=== PATIENT | male | born 1990 | race African-American/Black ===

== ENCOUNTER 2017-12-24 11:05 | Inpatient (IN) | payer MEDICARE ==
[2017-12-24] MEDS: CA CHLORIDE 10% 10 ML SYRINGE IV (11:50)
[2017-12-24] MEDS: NA BICARBONATE 8.4% 50 ML SYG IV (11:50)
[2017-12-24] MEDS: NA POLYST SULFON 15 GM/60 ML BTL PO (11:50)
[2017-12-24] MEDS: ALBUTEROL 0.5% (NEB) 2.5 MG/0.5 ML AMP INH (11:51)
[2017-12-24 12:01] LABS: WHITE BLOOD COUNT 10.7 10^3/ul (4.8-10.8)
[2017-12-24 12:01] LABS: ABNORMAL IP MESSAGE 1; MEAN CORPUSCULAR HEMOGLOBIN 31.4 pg (29.0-33.0); MEAN CORPUSCULAR HGB CONC 31.6 g/dl (32.0-37.0); MEAN CORPUSCULAR VOLUME 99.5 fl (82.0-101.0); MEAN PLATELET VOLUME 10.4 fl (7.4-10.4); PLATELET COUNT 253 10^3/UL (140-415); POSITIVE DIFF @See below; RED BLOOD COUNT 1.91 10^6/ul (4.70-6.10); RED CELL DISTRIBUTION WIDTH 14.3 % (11.5-14.5)
[2017-12-24 12:12] LABS: ADD MAN DIFF? YES; PATH REVIEW? YES
[2017-12-24 12:27] LABS: ANION GAP 18 (5-13); BLOOD UREA NITROGEN 113 mg/dl (7-20); CALCIUM 8.8 mg/dl (8.4-10.2); CARBON DIOXIDE 20 mmol/L (21-31); CHLORIDE 105 mmol/L (97-110); GLUCOSE 90 mg/dl (70-220); SODIUM 143 mmol/L (135-144)
[2017-12-24 12:37] LABS: CREATININE 19.94 mg/dl (0.61-1.24); Estimated GFR 3 mL/min (>60); POTASSIUM 7.6 mmol/L (3.5-5.1)
[2017-12-24 12:49] LABS: TROPONIN-I 0.048 ng/ml (0.000-0.120)
[2017-12-24] MEDS: hydrALAzine 20 MG INJ IV (12:56)
[2017-12-24] MEDS ORDERED: ONDANSETRON 4 MG INJ IV ×2 (13:00→14:30)
[2017-12-24] MEDS ORDERED: ACETAMINOPHEN 325 MG TAB PO ×2 (13:00→14:30)
[2017-12-24 13:04] LABS: ANISOCYTOSIS 2+ (0-0); BAND NEUTROPHILS #M 0.2 10^3/ul (0.0-0.6); BAND NEUTROPHILS % (M) 2 % (0-4); LYMPHOCYTES #M 1.2 10^3/ul (0.8-2.9); LYMPHOCYTES % (M) 12 % (15-51); MICROCYTOSIS 2+ (0-0); MONOCYTE #M 0.2 10^3/ul (0.3-0.9); MONOCYTES % (M) 2 % (0-11); PLATELET ESTIMATE NORMAL; POIKILOCYTOSIS 1+ (0-0); POLYCHROMASIA 3+ (0-0); SEGMENTED NEUTROPHILS (M) % 84 % (39-77); SMUDGE%M 2 % (0-0)
[2017-12-24] MEDS ORDERED: ALBUMIN HUMAN 25% 100 ML IV (13:30)
[2017-12-24] MEDS ORDERED: SODIUM CHLORIDE 0.9% 1L BAG IV (13:30)
[2017-12-24] MEDS: SOD CHLORIDE 0.9% 250 ML IV (14:00)
[2017-12-24] MEDS: SOD CHLORIDE 0.9% 250 ML IV* (14:10)
[2017-12-24] MEDS ORDERED: NACL 0.9% 3 ML SYG IV (14:30)
[2017-12-24] MEDS ORDERED: ALBUTEROL 0.083% (NEB) 2.5 MG/3 ML AMP HHN (15:30)
[2017-12-24 16:21] LABS: IMMEDIATE SPIN CROSSMATCH 1 3
[2017-12-24 16:43] LABS: HEPATITIS B SURFACE ANTIGEN NEGATIVE (NEGATIVE)
[2017-12-24 18:11] LABS: CREATINE KINASE 169 IU/L (23-200)
[2017-12-24 18:21] LABS: CK INDEX 1.3; CK-MB 2.21 ng/ml (0.0-2.4); TROPONIN-I 0.084 ng/ml (0.000-0.120)
[2017-12-24] MEDS: ALBUTEROL 0.083% (NEB) 2.5 MG/3 ML AMP HHN (20:37)
[2017-12-24] MEDS: LOSARTAN 50 MG TAB PO (20:45)
[2017-12-24] MEDS: NIFEdipine (XL) 30 MG TAB PO (20:45)
[2017-12-24] MEDS ORDERED: HEPARIN 5,000 UNIT/1 ML VIAL SC (22:00)
[2017-12-24 23:42] LABS: CREATINE KINASE 124 IU/L (23-200)
[2017-12-24 23:54] LABS: CK INDEX 1.1; CK-MB 1.37 ng/ml (0.0-2.4); TROPONIN-I 0.112 ng/ml (0.000-0.120)
[2017-12-25 05:29] LABS: ADD MAN DIFF? NO
[2017-12-25 05:42] LABS: BASOPHILS % 0.5 % (0.0-2.0); EOSINOPHILS # 0.2 10^3/ul (0.0-0.5); EOSINOPHILS % 2.4 % (0.0-7.0); HEMOGLOBIN 7.7 g/dl (14.0-18.0); MEAN CORPUSCULAR HEMOGLOBIN 30.6 pg (29.0-33.0); MEAN CORPUSCULAR HGB CONC 32.1 g/dl (32.0-37.0); MEAN CORPUSCULAR VOLUME 95.2 fl (82.0-101.0); MEAN PLATELET VOLUME 10.4 fl (7.4-10.4); MONOCYTE # 0.6 10^3/ul (0.3-0.9); MONOCYTES % 7.9 % (0.0-11.0); NEUTROPHIL # 5.9 10^3/ul (1.6-7.5); NEUTROPHILS % 75.6 % (39.0-77.0); PLATELET COUNT 243 10^3/UL (140-415); RED BLOOD COUNT 2.52 10^6/ul (4.70-6.10); RED CELL DISTRIBUTION WIDTH 15.7 % (11.5-14.5)
[2017-12-25 05:42] LABS: WHITE BLOOD COUNT 7.9 10^3/ul (4.8-10.8)
[2017-12-25 05:49] LABS: PHOSPHORUS 6.1 mg/dl (2.5-4.9)
[2017-12-25 05:49] LABS: MAGNESIUM 2.3 mg/dl (1.7-2.5)
[2017-12-25 06:00] LABS: ALANINE AMINOTRANSFERASE 23 IU/L (13-69); ALBUMIN 3.5 g/dl (3.3-4.9); ALKALINE PHOSPHATASE 87 IU/L (42-121); ANION GAP 10 (5-13); ASPARTATE AMINO TRANSFERASE 17 IU/L (15-46); BILIRUBIN,INDIRECT 0.6 mg/dl (0-1.1); BILIRUBIN,TOTAL 0.6 mg/dl (0.2-1.3); BLOOD UREA NITROGEN 64 mg/dl (7-20); CARBON DIOXIDE 28 mmol/L (21-31); CHLORIDE 102 mmol/L (97-110); Estimated GFR 6 mL/min (>60); GLUCOSE 96 mg/dl (70-220); POTASSIUM 5.5 mmol/L (3.5-5.1); SODIUM 140 mmol/L (135-144)
[2017-12-25] MEDS: ALBUTEROL 0.083% (NEB) 2.5 MG/3 ML AMP HHN (08:00)
[2017-12-25] MEDS: NIFEdipine (XL) 30 MG TAB PO ×2 (09:39→20:32)
[2017-12-25] MEDS: MULTIVIT/CA CARB/B CMPLX/FA TAB PO (09:40)
[2017-12-25] MEDS: LOSARTAN 50 MG TAB PO ×2 (09:40→20:31)
[2017-12-25] MEDS: EPOETIN 10000 UNITS/1 ML INJ (ESRD) SC (17:07)
[2017-12-25] MEDS: hydrALAzine 20 MG INJ IV (18:28)
[2017-12-26 05:01] LABS: ADD MAN DIFF? NO
[2017-12-26 05:09] LABS: BASOPHILS % 0.6 % (0.0-2.0); EOSINOPHILS # 0.2 10^3/ul (0.0-0.5); EOSINOPHILS % 3.2 % (0.0-7.0); HEMATOCRIT 25.2 % (42.0-52.0); HEMOGLOBIN 8.1 g/dl (14.0-18.0); LYMPHOCYTES # 0.9 10^3/ul (0.8-2.9); LYMPHOCYTES % 13.5 % (15.0-51.0); MEAN CORPUSCULAR HEMOGLOBIN 30.5 pg (29.0-33.0); MEAN CORPUSCULAR HGB CONC 32.1 g/dl (32.0-37.0); MEAN CORPUSCULAR VOLUME 94.7 fl (82.0-101.0); MEAN PLATELET VOLUME 9.8 fl (7.4-10.4); MONOCYTE # 0.7 10^3/ul (0.3-0.9); MONOCYTES % 9.8 % (0.0-11.0); NEUTROPHILS % 72.6 % (39.0-77.0); PLATELET COUNT 216 10^3/UL (140-415); RED BLOOD COUNT 2.66 10^6/ul (4.70-6.10); RED CELL DISTRIBUTION WIDTH 15.1 % (11.5-14.5)
[2017-12-26 05:09] LABS: WHITE BLOOD COUNT 6.9 10^3/ul (4.8-10.8)
[2017-12-26 05:36] LABS: MAGNESIUM 2.1 mg/dl (1.7-2.5)
[2017-12-26 05:36] LABS: PHOSPHORUS 5.9 mg/dl (2.5-4.9)
[2017-12-26 06:24] LABS: ALANINE AMINOTRANSFERASE 23 IU/L (13-69); ALBUMIN 3.5 g/dl (3.3-4.9); ALBUMIN/GLOBULIN RATIO 1.52; ALKALINE PHOSPHATASE 86 IU/L (42-121); ANION GAP 12 (5-13); ASPARTATE AMINO TRANSFERASE 17 IU/L (15-46); BILIRUBIN,INDIRECT 0.3 mg/dl (0-1.1); BILIRUBIN,TOTAL 0.3 mg/dl (0.2-1.3); CALCIUM 8.3 mg/dl (8.4-10.2); CARBON DIOXIDE 28 mmol/L (21-31); CHLORIDE 99 mmol/L (97-110); Estimated GFR 8 mL/min (>60); GLUCOSE 90 mg/dl (70-220); POTASSIUM 4.9 mmol/L (3.5-5.1); SODIUM 139 mmol/L (135-144); TOTAL PROTEIN 5.8 g/dl (6.1-8.1)
[2017-12-26 06:39] LABS: BLOOD UREA NITROGEN 39 mg/dl (7-20); CREATININE 9.02 mg/dl (0.61-1.24)
[2017-12-26] MEDS: NIFEdipine (XL) 30 MG TAB PO (08:16)
[2017-12-26] MEDS: LOSARTAN 50 MG TAB PO (08:17)
[2017-12-26] MEDS: MULTIVIT/CA CARB/B CMPLX/FA TAB PO (08:17)
[2017-12-26] MEDS: hydrALAzine 20 MG INJ IV (11:04)
[2017-12-26 17:21] LABS: OCCULT BLOOD STOOL NEGATIVE (NEGATIVE)
== END 2017-12-26 20:32 | disposition home or self-care (01) | DRG 640 ==
LOC: 6WM 12-26 09:09 → E/R 11:05 → 6WM 13:00
PROVIDERS: Internal Medicine
PROC: 5A1D70Z Performance of Urinary Filtration, Intermittent, Less than 6 Hours Per Day (ICD-10-PCS; principal; 2017-12-24)
PROC: 30233N1 Transfusion of Nonautologous Red Blood Cells into Peripheral Vein, Percutaneous Approach (ICD-10-PCS; 2017-12-24)
DX: E87.70 Fluid overload, unspecified (principal); J96.00 Acute respiratory failure, unspecified whether with hypoxia or hypercapnia; J81.0 Acute pulmonary edema; N18.6 End stage renal disease; I12.0 Hypertensive chronic kidney disease with stage 5 chronic kidney disease or end stage renal disease; E87.5 Hyperkalemia; Z99.2 Dependence on renal dialysis; I16.0 Hypertensive urgency; Z72.0 Tobacco use; D64.9 Anemia, unspecified
CPT/HCPCS: 36415; 36430; 71045; 80048; 80053; 82270; 82550; 82553; 83735; 84100; 84484; 85025; 86850; 86900; 86901; 86920; 87340; 90935; 93005; 94664; 96374; 96375; 99291-25

== ENCOUNTER 2018-05-25 01:50 | Inpatient (IN) | payer MEDICARE ==
[2018-05-25 02:34] LABS: ADD MAN DIFF? NO
[2018-05-25 02:38] LABS: WHITE BLOOD COUNT 11.1 10^3/ul (4.8-10.8)
[2018-05-25 02:38] LABS: BASOPHILS % 0.3 % (0.0-2.0); EOSINOPHILS % 0.3 % (0.0-7.0); HEMOGLOBIN 10.8 g/dl (14.0-18.0); LYMPHOCYTES # 0.6 10^3/ul (0.8-2.9); LYMPHOCYTES % 5.7 % (15.0-51.0); MEAN CORPUSCULAR HEMOGLOBIN 28.9 pg (29.0-33.0); MEAN CORPUSCULAR HGB CONC 31.8 g/dl (32.0-37.0); MEAN CORPUSCULAR VOLUME 90.9 fl (82.0-101.0); MEAN PLATELET VOLUME 10.5 fl (7.4-10.4); MONOCYTE # 0.9 10^3/ul (0.3-0.9); MONOCYTES % 8.3 % (0.0-11.0); NEUTROPHIL # 9.5 10^3/ul (1.6-7.5); NEUTROPHILS % 84.9 % (39.0-77.0); PLATELET COUNT 236 10^3/UL (140-415); RED BLOOD COUNT 3.74 10^6/ul (4.70-6.10); RED CELL DISTRIBUTION WIDTH 14.3 % (11.5-14.5)
[2018-05-25 02:55] LABS: ALANINE AMINOTRANSFERASE 9 IU/L (13-69); ALBUMIN 4.4 g/dl (3.3-4.9); ALBUMIN/GLOBULIN RATIO 1.18; ALKALINE PHOSPHATASE 100 IU/L (42-121); ANION GAP 21 (5-13); ASPARTATE AMINO TRANSFERASE 16 IU/L (15-46); BILIRUBIN,INDIRECT 0.9 mg/dl (0-1.1); BILIRUBIN,TOTAL 0.9 mg/dl (0.2-1.3); BLOOD UREA NITROGEN 77 mg/dl (7-20); CALCIUM 9.4 mg/dl (8.4-10.2); CARBON DIOXIDE 22 mmol/L (21-31); CHLORIDE 97 mmol/L (97-110); GLUCOSE 94 mg/dl (70-220); POTASSIUM 4.3 mmol/L (3.5-5.1); SODIUM 140 mmol/L (135-144); TOTAL PROTEIN 8.1 g/dl (6.1-8.1)
[2018-05-25 02:56] LABS: LACTIC ACID 1.3 mmol/L (0.5-2.0)
[2018-05-25 02:57] LABS: INR 1.04; PROTIME 13.7 Sec (11.9-14.9); PT RATIO 1.1
[2018-05-25 02:58] LABS: PARTIAL THROMBOPLASTIN TIME 27.2 Sec (23.0-35.0)
[2018-05-25 03:14] LABS: CREATININE 14.52 mg/dl (0.61-1.24); Estimated GFR 5 mL/min (>60)
[2018-05-25 03:16] LABS: TROPONIN-I 0.228 ng/ml (0.000-0.120)
[2018-05-25] MEDS: hydrALAzine 20 MG INJ IV ×2 (03:23→05:19)
[2018-05-25] MEDS ORDERED: LABETALOL HCL 20MG INJ (06:16)
[2018-05-25] MEDS: LABETALOL HCL 20MG INJ IV (06:21)
[2018-05-25] MEDS ORDERED: LABETALOL HCL 20MG INJ IV (07:00)
[2018-05-25] MEDS ORDERED: NITROGLYCERIN (SL) 0.4 MG TAB SL (07:00)
[2018-05-25] MEDS ORDERED: ACETAMINOPHEN 325 MG TAB PO (07:00)
[2018-05-25] MEDS ORDERED: NACL 0.9% 3 ML SYG IV (07:00)
[2018-05-25 08:26] LABS: CREATINE KINASE 144 IU/L (23-200)
[2018-05-25 08:27] LABS: LACTIC ACID 0.9 mmol/L (0.5-2.0)
[2018-05-25 08:39] LABS: CK INDEX 1.4; CK-MB 1.99 ng/ml (0.0-2.4)
[2018-05-25] MEDS: MULTIVIT/CA CARB/B CMPLX/FA TAB PO (08:48)
[2018-05-25] MEDS: NIFEdipine (XL) 60 MG TAB PO ×2 (08:50→20:16)
[2018-05-25] MEDS: LOSARTAN 50 MG TAB PO ×2 (08:50→20:15)
[2018-05-25] MEDS: ASPIRIN 81 MG TAB PO (08:50)
[2018-05-25] MEDS: HEPARIN 5,000 UNIT/1 ML VIAL SC ×2 (08:51→20:26)
[2018-05-25] MEDS ORDERED: NIFEdipine (XL) 30 MG TAB PO (09:00)
[2018-05-25] MEDS ORDERED: ALBUMIN HUMAN 25% 100 ML IV (15:00)
[2018-05-25] MEDS ORDERED: SODIUM CHLORIDE 0.9% 1L BAG IV (15:00)
[2018-05-25 15:51] LABS: CREATINE KINASE 125 IU/L (23-200)
[2018-05-25 16:05] LABS: CK INDEX 1.5; CK-MB 1.84 ng/ml (0.0-2.4)
[2018-05-25 16:11] LABS: TROPONIN-I 0.354 ng/ml (0.000-0.120)
[2018-05-25 18:28] LABS: HEPATITIS B SURFACE ANTIGEN NEGATIVE (NEGATIVE)
[2018-05-25] MEDS: ATORVASTATIN 80 MG TAB PO (20:15)
[2018-05-26 06:54] LABS: ADD MAN DIFF? NO
[2018-05-26 06:55] LABS: BASOPHIL # 0.1 10^3/ul (0.0-0.1); BASOPHILS % 1.3 % (0.0-2.0); EOSINOPHILS # 0.2 10^3/ul (0.0-0.5); EOSINOPHILS % 4.7 % (0.0-7.0); HEMATOCRIT 32.2 % (42.0-52.0); HEMOGLOBIN 10.2 g/dl (14.0-18.0); LYMPHOCYTES % 21.5 % (15.0-51.0); MEAN CORPUSCULAR HEMOGLOBIN 28.5 pg (29.0-33.0); MEAN CORPUSCULAR HGB CONC 31.7 g/dl (32.0-37.0); MEAN CORPUSCULAR VOLUME 89.9 fl (82.0-101.0); MEAN PLATELET VOLUME 10.3 fl (7.4-10.4); MONOCYTE # 0.3 10^3/ul (0.3-0.9); MONOCYTES % 7.3 % (0.0-11.0); NEUTROPHIL # 2.9 10^3/ul (1.6-7.5); NEUTROPHILS % 64.8 % (39.0-77.0); PLATELET COUNT 247 10^3/UL (140-415); RED BLOOD COUNT 3.58 10^6/ul (4.70-6.10); RED CELL DISTRIBUTION WIDTH 14.5 % (11.5-14.5)
[2018-05-26 06:55] LABS: WHITE BLOOD COUNT 4.5 10^3/ul (4.8-10.8)
[2018-05-26 07:22] LABS: ALANINE AMINOTRANSFERASE 9 IU/L (13-69); ALBUMIN 3.6 g/dl (3.3-4.9); ALBUMIN/GLOBULIN RATIO 1.24; ALKALINE PHOSPHATASE 71 IU/L (42-121); ANION GAP 21 (5-13); ASPARTATE AMINO TRANSFERASE 14 IU/L (15-46); BILIRUBIN,INDIRECT 0.6 mg/dl (0-1.1); BILIRUBIN,TOTAL 0.6 mg/dl (0.2-1.3); BLOOD UREA NITROGEN 106 mg/dl (7-20); CALCIUM 8.9 mg/dl (8.4-10.2); CARBON DIOXIDE 22 mmol/L (21-31); CHLORIDE 94 mmol/L (97-110); CHOL/HDL RATIO 5.4 RATIO; CHOLESTEROL 168 mg/dl (100-200); GLUCOSE 95 mg/dl (70-220); HDL CHOLESTEROL 31 mg/dl (28-63); LDL CHOLESTEROL,CALCULATED 108 mg/dl; MAGNESIUM 2.7 mg/dl (1.7-2.5); POTASSIUM 4.7 mmol/L (3.5-5.1); SODIUM 137 mmol/L (135-144); TOTAL PROTEIN 6.5 g/dl (6.1-8.1); TRIGLYCERIDES 145 mg/dl (0-149)
[2018-05-26 07:26] LABS: HEMOGLOBIN A1C 5.1 % (0-5.9)
[2018-05-26 07:28] LABS: CREATINE KINASE 103 IU/L (23-200)
[2018-05-26 07:32] LABS: Estimated GFR 4 mL/min (>60)
[2018-05-26 07:40] LABS: CK INDEX 1.5; CK-MB 1.58 ng/ml (0.0-2.4)
[2018-05-26 07:46] LABS: TROPONIN-I 0.227 ng/ml (0.000-0.120)
[2018-05-26 07:51] LABS: THYROID STIMULATING HORMONE 0.279 MIU/L (0.465-4.680)
[2018-05-26] MEDS: MULTIVIT/CA CARB/B CMPLX/FA TAB PO (08:25)
[2018-05-26] MEDS: LOSARTAN 50 MG TAB PO ×2 (08:25→21:00)
[2018-05-26] MEDS: NIFEdipine (XL) 60 MG TAB PO ×2 (08:26→21:00)
[2018-05-26] MEDS: ASPIRIN 81 MG TAB PO (08:26)
[2018-05-26] MEDS: HEPARIN 5,000 UNIT/1 ML VIAL SC ×2 (08:29→21:00)
[2018-05-26] MEDS: ATORVASTATIN 80 MG TAB PO (20:59)
[2018-05-27 07:14] LABS: ANION GAP 16 (5-13); BLOOD UREA NITROGEN 58 mg/dl (7-20); CALCIUM 8.8 mg/dl (8.4-10.2); CARBON DIOXIDE 26 mmol/L (21-31); CHLORIDE 94 mmol/L (97-110); CREATININE 11.97 mg/dl (0.61-1.24); Estimated GFR 6 mL/min (>60); GLUCOSE 93 mg/dl (70-220); POTASSIUM 4.2 mmol/L (3.5-5.1); SODIUM 136 mmol/L (135-144)
[2018-05-27] MEDS: MULTIVIT/CA CARB/B CMPLX/FA TAB PO (08:13)
[2018-05-27] MEDS: LOSARTAN 50 MG TAB PO (08:14)
[2018-05-27] MEDS: NIFEdipine (XL) 60 MG TAB PO (08:14)
[2018-05-27] MEDS: HEPARIN 5,000 UNIT/1 ML VIAL SC (08:14)
[2018-05-27] MEDS: ASPIRIN 81 MG TAB PO (08:14)
== END 2018-05-27 13:20 | disposition home or self-care (01) | DRG 304 ==
LOC: E/R 01:50 → TEL 05:31
PROC: 5A1D70Z Performance of Urinary Filtration, Intermittent, Less than 6 Hours Per Day (ICD-10-PCS; principal; 2018-05-26)
DX: I16.1 Hypertensive emergency (principal); N18.6 End stage renal disease; J81.0 Acute pulmonary edema; I50.30 Unspecified diastolic (congestive) heart failure; I13.2 Hypertensive heart and chronic kidney disease with heart failure and with stage 5 chronic kidney disease, or end stage renal disease; D63.1 Anemia in chronic kidney disease; R00.0 Tachycardia, unspecified; R79.89 Other specified abnormal findings of blood chemistry; Z99.2 Dependence on renal dialysis
CPT/HCPCS: 71045; 80048; 80053; 80061; 82550; 82553; 83036; 83605; 83735; 84443; 84484; 85025; 85610; 85730; 87040-91; 87340; 90935; 93005; 93306; 94660

== ENCOUNTER 2018-07-28 21:12 | Inpatient (IN) | payer MEDICARE ==
[2018-07-28 23:21] LABS: ADD MAN DIFF? NO
[2018-07-28 23:23] LABS: BASOPHILS % 0.6 % (0.0-2.0); EOSINOPHILS # 0.1 10^3/ul (0.0-0.5); EOSINOPHILS % 1.8 % (0.0-7.0); HEMATOCRIT 22.7 % (42.0-52.0); HEMOGLOBIN 7.5 g/dl (14.0-18.0); LYMPHOCYTES # 0.7 10^3/ul (0.8-2.9); LYMPHOCYTES % 21.1 % (15.0-51.0); MEAN CORPUSCULAR HEMOGLOBIN 29.3 pg (29.0-33.0); MEAN CORPUSCULAR VOLUME 88.7 fl (82.0-101.0); MEAN PLATELET VOLUME 9.9 fl (7.4-10.4); MONOCYTE # 0.5 10^3/ul (0.3-0.9); MONOCYTES % 13.4 % (0.0-11.0); NEUTROPHIL # 2.1 10^3/ul (1.6-7.5); NEUTROPHILS % 62.8 % (39.0-77.0); PLATELET COUNT 131 10^3/UL (140-415); RED BLOOD COUNT 2.56 10^6/ul (4.70-6.10)
[2018-07-28 23:23] LABS: WHITE BLOOD COUNT 3.4 10^3/ul (4.8-10.8)
[2018-07-28 23:43] LABS: ALANINE AMINOTRANSFERASE 22 IU/L (13-69); ALBUMIN 4.3 g/dl (3.3-4.9); ALBUMIN/GLOBULIN RATIO 1.59; ALKALINE PHOSPHATASE 78 IU/L (42-121); ANION GAP 20 (5-13); ASPARTATE AMINO TRANSFERASE 19 IU/L (15-46); BILIRUBIN,INDIRECT 0.3 mg/dl (0-1.1); BILIRUBIN,TOTAL 0.3 mg/dl (0.2-1.3); CALCIUM 8.7 mg/dl (8.4-10.2); CARBON DIOXIDE 17 mmol/L (21-31); CHLORIDE 97 mmol/L (97-110); GLUCOSE 86 mg/dl (70-220); SODIUM 134 mmol/L (135-144)
[2018-07-29 00:04] LABS: CREATININE 23.98 mg/dl (0.61-1.24); Estimated GFR 3 mL/min (>60)
[2018-07-29 00:06] LABS: BLOOD UREA NITROGEN 126 mg/dl (7-20); POTASSIUM 6.5 mmol/L (3.5-5.1)
[2018-07-29 00:15] LABS: B-TYPE NATRIURETIC PEPTIDE 48300 PG/ML (0-125)
[2018-07-29 00:16] LABS: TROPONIN-I 0.049 ng/ml (0.000-0.120)
[2018-07-29] MEDS: ALBUTEROL 0.5% (NEB) 2.5 MG/0.5 ML AMP INH (00:53)
[2018-07-29] MEDS: CA CHLORIDE 10% 10 ML SYRINGE IV (01:22)
[2018-07-29] MEDS: SODIUM POLYSTYRENE 15 GM KIT (POWDER + SORBITOL) PO (01:22)
[2018-07-29] MEDS: NA BICARBONATE 8.4% 50 ML SYG IV (01:22)
[2018-07-29] MEDS ORDERED: ACETAMINOPHEN 325 MG TAB PO ×2 (01:30)
[2018-07-29] MEDS ORDERED: BISACODYL (EC) 5 MG TAB PO (01:30)
[2018-07-29] MEDS ORDERED: ONDANSETRON 4 MG INJ IV (01:30)
[2018-07-29] MEDS ORDERED: DOCUSATE SODIUM 100 MG CAP PO (01:30)
[2018-07-29] MEDS ORDERED: NACL 0.9% 3 ML SYG IV (01:30)
[2018-07-29] MEDS: ONDANSETRON 4 MG INJ IV (01:34)
[2018-07-29] MEDS: INSULIN REGULAR, HUMAN 100 UNIT/1 ML 3ML VIAL IVP (01:37)
[2018-07-29] MEDS: HEPARIN 5,000 UNIT/1 ML VIAL SC ×3 (01:52→17:30)
[2018-07-29 01:54] LABS: PHOSPHORUS 9.4 mg/dl (2.5-4.9)
[2018-07-29] MEDS: NIFEdipine (XL) 60 MG TAB PO ×3 (02:07→21:00)
[2018-07-29] MEDS: hydrALAzine 20 MG INJ IV ×2 (02:07→18:17)
[2018-07-29] MEDS ORDERED: hydrALAzine 20 MG INJ IV (03:00)
[2018-07-29 03:19] LABS: ANION GAP 29 (5-13); CALCIUM 9.8 mg/dl (8.4-10.2); CARBON DIOXIDE 16 mmol/L (21-31); CHLORIDE 98 mmol/L (97-110); POTASSIUM 4.8 mmol/L (3.5-5.1); SODIUM 143 mmol/L (135-144)
[2018-07-29 03:33] LABS: BLOOD UREA NITROGEN 123 mg/dl (7-20); CREATININE 24.87 mg/dl (0.61-1.24); Estimated GFR 3 mL/min (>60)
[2018-07-29 03:34] LABS: GLUCOSE 43 mg/dl (70-220)
[2018-07-29] MEDS ORDERED: DEXTROSE 50% 50 ML SYRINGE (03:44)
[2018-07-29] MEDS: DEXTROSE 50% 50 ML SYRINGE IV ×2 (03:49→04:47)
[2018-07-29] MEDS: DEXTROSE 5%-0.45% NACL 1,000 ML IV (04:56)
[2018-07-29] MEDS ORDERED: GLUCOSE GEL 15 GRAM TUBE PO ×2 (05:00)
[2018-07-29] MEDS ORDERED: LABETALOL HCL 20MG INJ IV (05:00)
[2018-07-29] MEDS ORDERED: GLUCAGON 1 MG INJ IM (05:00)
[2018-07-29] MEDS ORDERED: GLUCOSE GEL 15 GRAM TUBE BUCCAL (05:00)
[2018-07-29] MEDS ORDERED: DEXTROSE 50% 50 ML SYRINGE IV ×2 (05:00)
[2018-07-29 05:18] LABS: ADD MAN DIFF? NO
[2018-07-29 05:22] LABS: WHITE BLOOD COUNT 4.6 10^3/ul (4.8-10.8)
[2018-07-29 05:22] LABS: BASOPHILS % 0.4 % (0.0-2.0); EOSINOPHILS % 0.4 % (0.0-7.0); HEMATOCRIT 23.9 % (42.0-52.0); HEMOGLOBIN 7.9 g/dl (14.0-18.0); LYMPHOCYTES # 0.6 10^3/ul (0.8-2.9); LYMPHOCYTES % 13.4 % (15.0-51.0); MEAN CORPUSCULAR HGB CONC 33.1 g/dl (32.0-37.0); MEAN CORPUSCULAR VOLUME 87.9 fl (82.0-101.0); MEAN PLATELET VOLUME 10.5 fl (7.4-10.4); MONOCYTE # 0.4 10^3/ul (0.3-0.9); MONOCYTES % 9.1 % (0.0-11.0); NEUTROPHIL # 3.5 10^3/ul (1.6-7.5); NEUTROPHILS % 76.5 % (39.0-77.0); PLATELET COUNT 184 10^3/UL (140-415); RED BLOOD COUNT 2.72 10^6/ul (4.70-6.10); RED CELL DISTRIBUTION WIDTH 13.2 % (11.5-14.5)
[2018-07-29 06:02] LABS: ALANINE AMINOTRANSFERASE 13 IU/L (13-69); ALBUMIN 4.4 g/dl (3.3-4.9); ALBUMIN/GLOBULIN RATIO 1.51; ALKALINE PHOSPHATASE 80 IU/L (42-121); ANION GAP 22 (5-13); ASPARTATE AMINO TRANSFERASE 21 IU/L (15-46); BILIRUBIN,INDIRECT 0.3 mg/dl (0-1.1); BILIRUBIN,TOTAL 0.3 mg/dl (0.2-1.3); CARBON DIOXIDE 18 mmol/L (21-31); CHLORIDE 99 mmol/L (97-110); GLUCOSE 95 mg/dl (70-220); SODIUM 139 mmol/L (135-144); TOTAL PROTEIN 7.3 g/dl (6.1-8.1)
[2018-07-29 06:03] LABS: CHOLESTEROL 163 mg/dl (100-200); MAGNESIUM 2.8 mg/dl (1.7-2.5)
[2018-07-29 06:03] LABS: CHOL/HDL RATIO 6.7 RATIO; HDL CHOLESTEROL 24 mg/dl (28-63); LDL CHOLESTEROL,CALCULATED 83 mg/dl; TRIGLYCERIDES 282 mg/dl (0-149)
[2018-07-29 06:14] LABS: BLOOD UREA NITROGEN 131 mg/dl (7-20); CREATININE 24.43 mg/dl (0.61-1.24); Estimated GFR 3 mL/min (>60)
[2018-07-29 06:22] LABS: THYROID STIMULATING HORMONE 0.729 MIU/L (0.465-4.680)
[2018-07-29 06:36] LABS: HEMOGLOBIN A1C 4.9 % (0-5.9)
[2018-07-29] MEDS: INSULIN ASPART [NOVOLOG] 3 ML PEN SC ×4 (08:00→21:00)
[2018-07-29] MEDS: ASPIRIN 81 MG TAB PO (08:46)
[2018-07-29 13:26] LABS: HEPATITIS B SURFACE ANTIGEN NEGATIVE (NEGATIVE)
[2018-07-30] MEDS: DEXTROSE 5%-0.45% NACL 1,000 ML IV (01:00)
[2018-07-30] MEDS: HEPARIN 5,000 UNIT/1 ML VIAL SC (01:30)
[2018-07-30] MEDS ORDERED: ACCU-CHEK XX (02:00)
== END 2018-07-30 08:20 | disposition left against medical advice (07) | DRG 682 ==
LOC: E/R 21:12 → TEL 07-29 01:08
DX: I12.0 Hypertensive chronic kidney disease with stage 5 chronic kidney disease or end stage renal disease (principal); N18.6 End stage renal disease; E87.5 Hyperkalemia; J06.9 Acute upper respiratory infection, unspecified; R79.89 Other specified abnormal findings of blood chemistry; F17.200 Nicotine dependence, unspecified, uncomplicated; D63.1 Anemia in chronic kidney disease; Z79.82 Long term (current) use of aspirin; Z91.15 Patient's noncompliance with renal dialysis
CPT/HCPCS: 36415; 71045; 80048; 80053; 80061; 82962; 83036; 83735; 83880; 84100; 84443; 84484; 85025; 87040-91; 87340; 90935; 93005; 93308; 94664; 99285-25

== ENCOUNTER 2018-10-17 06:59 | Inpatient (IN) | payer MEDICARE ==
[2018-10-17] MEDS ORDERED: CA GLUCONATE (GM) 10% 10ML INJ (07:16)
[2018-10-17] MEDS: LORAZEPAM 2 MG INJ IV (07:27)
[2018-10-17 07:28] LABS: ADD MAN DIFF? NO
[2018-10-17 07:29] LABS: WHITE BLOOD COUNT 9.8 10^3/ul (4.8-10.8)
[2018-10-17 07:29] LABS: BASOPHILS % 0.3 % (0.0-2.0); EOSINOPHILS % 0.1 % (0.0-7.0); HEMATOCRIT 25.6 % (42.0-52.0); HEMOGLOBIN 8.4 g/dl (14.0-18.0); LYMPHOCYTES # 0.8 10^3/ul (0.8-2.9); LYMPHOCYTES % 8.2 % (15.0-51.0); MEAN CORPUSCULAR HEMOGLOBIN 29.2 pg (29.0-33.0); MEAN CORPUSCULAR HGB CONC 32.8 g/dl (32.0-37.0); MEAN CORPUSCULAR VOLUME 88.9 fl (82.0-101.0); MEAN PLATELET VOLUME 10.7 fl (7.4-10.4); MONOCYTE # 0.7 10^3/ul (0.3-0.9); NEUTROPHIL # 8.2 10^3/ul (1.6-7.5); NEUTROPHILS % 83.4 % (39.0-77.0); PLATELET COUNT 312 10^3/UL (140-415); RED BLOOD COUNT 2.88 10^6/ul (4.70-6.10); RED CELL DISTRIBUTION WIDTH 13.8 % (11.5-14.5)
[2018-10-17] MEDS: VANCOMYCIN 1 GM (PMX) 250 ML IVPB (07:31)
[2018-10-17] MEDS: CEFEPIME 1GM/50 ML (PMX) 50 ML IVPB (07:39)
[2018-10-17] MEDS: SOD CHLORIDE 0.9% 500 ML IV (07:39)
[2018-10-17 07:50] LABS: INR 1.08; PROTIME 14.1 Sec (11.9-14.9); PT RATIO 1.1
[2018-10-17 07:51] LABS: PARTIAL THROMBOPLASTIN TIME 28.8 Sec (23.0-35.0)
[2018-10-17 07:53] LABS: ANION GAP 26 (5-13); BLOOD UREA NITROGEN 86 mg/dl (7-20); CALCIUM 9.1 mg/dl (8.4-10.2); CARBON DIOXIDE 16 mmol/L (21-31); CHLORIDE 93 mmol/L (97-110); GLUCOSE 109 mg/dl (70-220); POTASSIUM 3.4 mmol/L (3.5-5.1); SODIUM 135 mmol/L (135-144)
[2018-10-17 07:56] LABS: ETHANOL < 10.0 mg/dl (0-0)
[2018-10-17 08:00] LABS: CREATININE 17.39 mg/dl (0.61-1.24); Estimated GFR 4 mL/min (>60)
[2018-10-17 08:07] LABS: TROPONIN-I 0.638 ng/ml (0.000-0.120)
[2018-10-17] MEDS: CALCIUM GLUCONATE 10% 1 GM in DEXTROSE 5% 100 ML IVPB (08:11)
[2018-10-17] MEDS ORDERED: ACETAMINOPHEN 325 MG TAB PO (08:30)
[2018-10-17] MEDS ORDERED: ONDANSETRON 4 MG INJ IV (08:30)
[2018-10-17] MEDS: ASPIRIN 81 MG TAB PO (08:30)
[2018-10-17] MEDS: LABETALOL HCL 20MG INJ IV (08:38)
[2018-10-17] MEDS: ONDANSETRON 4 MG INJ IV (08:38)
[2018-10-17] MEDS: PNEUMOC 13-VAL CONJ-DIP CRM/PF 0.5 ML SYR IM* (09:30)
[2018-10-17] MEDS ORDERED: DOCUSATE SODIUM 100 MG CAP PO (09:30)
[2018-10-17] MEDS ORDERED: NACL 0.9% 3 ML SYG IV (09:30)
[2018-10-17] MEDS ORDERED: ONDANSETRON 4 MG TAB PO (09:30)
[2018-10-17] MEDS ORDERED: EPOETIN ALFA-EPBX (ESRD) 3,000 UNIT/ML VIAL SC (10:00)
[2018-10-17 10:18] LABS: LACTIC ACID 1.3 mmol/L (0.5-2.0)
[2018-10-17] MEDS: ATENOLOL 50 MG TAB PO (10:35)
[2018-10-17] MEDS: THIAMINE 100 MG TAB PO (10:36)
[2018-10-17] MEDS: LOSARTAN 50 MG TAB PO (10:36)
[2018-10-17] MEDS: EPOETIN ALFA-EPBX (ESRD) 10,000 UNIT/ML VIAL SC (10:42)
[2018-10-17 11:49] LABS: LACTIC ACID 1.4 mmol/L (0.5-2.0)
[2018-10-17] MEDS: AZITHROMYCIN 500MG/NS (PMX) 250 ML IV (14:53)
[2018-10-17] MEDS: FAMOTIDINE 20 MG TAB PO (14:53)
[2018-10-17] MEDS: HYDROCODONE/APAP (5/325) TAB PO (17:11)
[2018-10-17 17:44] LABS: TROPONIN-I 0.532 ng/ml (0.000-0.120)
[2018-10-17] MEDS: DOXAZOSIN 1 MG TAB PO (21:10)
[2018-10-17] MEDS: HEPARIN 5,000 UNIT/1 ML VIAL SC (21:16)
[2018-10-17] MEDS: CEFEPIME 2GM/50 ML (PMX) 50 ML IV (21:30)
[2018-10-18] MEDS: HYDROCODONE/APAP (5/325) TAB PO (04:52)
[2018-10-18 06:52] LABS: ABNORMAL IP MESSAGE 1; HEMATOCRIT 14.2 % (42.0-52.0); MEAN CORPUSCULAR HEMOGLOBIN 28.5 pg (29.0-33.0); MEAN CORPUSCULAR HGB CONC 31.7 g/dl (32.0-37.0); MEAN CORPUSCULAR VOLUME 89.9 fl (82.0-101.0); MEAN PLATELET VOLUME 11.3 fl (7.4-10.4); PLATELET COUNT 170 10^3/UL (140-415); POSITIVE DIFF @See below; RED BLOOD COUNT 1.58 10^6/ul (4.70-6.10); RED CELL DISTRIBUTION WIDTH 13.8 % (11.5-14.5)
[2018-10-18 06:59] LABS: ADD MAN DIFF? YES; PATH REVIEW? YES
[2018-10-18 07:03] LABS: HEMOGLOBIN 4.5 g/dl (14.0-18.0)
[2018-10-18 07:15] LABS: ALANINE AMINOTRANSFERASE 34 IU/L (13-69); ALBUMIN 2.7 g/dl (3.3-4.9); ALBUMIN/GLOBULIN RATIO 1.08; ALKALINE PHOSPHATASE 65 IU/L (42-121); ANION GAP 17 (5-13); ASPARTATE AMINO TRANSFERASE 51 IU/L (15-46); BILIRUBIN,INDIRECT 0.5 mg/dl (0-1.1); BILIRUBIN,TOTAL 0.5 mg/dl (0.2-1.3); BLOOD UREA NITROGEN 114 mg/dl (7-20); CALCIUM 7.6 mg/dl (8.4-10.2); CARBON DIOXIDE 21 mmol/L (21-31); CHLORIDE 94 mmol/L (97-110); GLUCOSE 100 mg/dl (70-220); MAGNESIUM 2.5 mg/dl (1.7-2.5); PHOSPHORUS 10.8 mg/dl (2.5-4.9); SODIUM 132 mmol/L (135-144); TOTAL PROTEIN 5.2 g/dl (6.1-8.1)
[2018-10-18 07:29] LABS: CREATININE 21.35 mg/dl (0.61-1.24); Estimated GFR 3 mL/min (>60)
[2018-10-18 08:13] LABS: ADD MAN DIFF? NO
[2018-10-18 08:17] LABS: ABNORMAL IP MESSAGE 1; LYMPHOCYTES # 0.3 10^3/ul (0.8-2.9); LYMPHOCYTES % 4.8 % (15.0-51.0); MEAN CORPUSCULAR HEMOGLOBIN 28.3 pg (29.0-33.0); MEAN CORPUSCULAR HGB CONC 31.5 g/dl (32.0-37.0); MEAN CORPUSCULAR VOLUME 89.7 fl (82.0-101.0); MEAN PLATELET VOLUME 11.5 fl (7.4-10.4); MONOCYTE # 0.4 10^3/ul (0.3-0.9); MONOCYTES % 6.8 % (0.0-11.0); NEUTROPHIL # 5.5 10^3/ul (1.6-7.5); NEUTROPHILS % 87.8 % (39.0-77.0); PLATELET COUNT 167 10^3/UL (140-415); POSITIVE DIFF @See below; RED BLOOD COUNT 1.45 10^6/ul (4.70-6.10); RED CELL DISTRIBUTION WIDTH 13.9 % (11.5-14.5)
[2018-10-18 08:17] LABS: WHITE BLOOD COUNT 6.3 10^3/ul (4.8-10.8)
[2018-10-18] MEDS: ATENOLOL 50 MG TAB PO ×2 (08:26→09:00)
[2018-10-18] MEDS: FAMOTIDINE 20 MG TAB PO (08:27)
[2018-10-18] MEDS: THIAMINE 100 MG TAB PO (08:27)
[2018-10-18] MEDS: LOSARTAN 50 MG TAB PO ×2 (08:27→09:01)
[2018-10-18] MEDS: ASPIRIN 81 MG TAB PO (08:27)
[2018-10-18 08:31] LABS: HEMOGLOBIN 4.1 g/dl (14.0-18.0)
[2018-10-18] MEDS: HEPARIN 5,000 UNIT/1 ML VIAL SC ×2 (08:50→21:00)
[2018-10-18] MEDS: PANTOPRAZOLE 40 MG INJ IV ×2 (09:05→17:57)
[2018-10-18 10:42] LABS: BAND NEUTROPHILS #M 0.4 10^3/ul (0.0-0.6); BAND NEUTROPHILS % (M) 7 % (0-4); LYMPHOCYTES #M 0.9 10^3/ul (0.8-2.9); LYMPHOCYTES % (M) 13 % (15-51); MONOCYTES % (M) 1 % (0-11); SEG NEUT #M 5.6 10^3/ul (1.6-7.5); SEGMENTED NEUTROPHILS (M) % 79 % (39-77); SMUDGE%M 9 % (0-0)
[2018-10-18 10:47] LABS: BAND NEUTROPHILS #M 0.5 10^3/ul (0.0-0.6); BAND NEUTROPHILS % (M) 9 % (0-4); LYMPHOCYTES #M 0.9 10^3/ul (0.8-2.9); LYMPHOCYTES % (M) 15 % (15-51); SEG NEUT #M 4.8 10^3/ul (1.6-7.5); SEGMENTED NEUTROPHILS (M) % 76 % (39-77); SMUDGE%M 54 % (0-0)
[2018-10-18] MEDS: SUCRALFATE (100 MG/ML) 10ML CUP PO ×4 (12:35→22:30)
[2018-10-18 14:12] LABS: HEPATITIS B SURFACE ANTIGEN NEGATIVE (NEGATIVE)
[2018-10-18 18:43] LABS: ADD MAN DIFF? NO
[2018-10-18 18:45] LABS: BASOPHILS % 0.1 % (0.0-2.0); EOSINOPHILS % 0.3 % (0.0-7.0); HEMATOCRIT 21.9 % (42.0-52.0); HEMOGLOBIN 7.4 g/dl (14.0-18.0); LYMPHOCYTES # 0.8 10^3/ul (0.8-2.9); LYMPHOCYTES % 9.7 % (15.0-51.0); MEAN CORPUSCULAR HEMOGLOBIN 29.2 pg (29.0-33.0); MEAN CORPUSCULAR HGB CONC 33.8 g/dl (32.0-37.0); MEAN CORPUSCULAR VOLUME 86.6 fl (82.0-101.0); MEAN PLATELET VOLUME 10.4 fl (7.4-10.4); MONOCYTE # 0.7 10^3/ul (0.3-0.9); MONOCYTES % 8.7 % (0.0-11.0); NEUTROPHIL # 6.2 10^3/ul (1.6-7.5); NEUTROPHILS % 80.7 % (39.0-77.0); PLATELET COUNT 200 10^3/UL (140-415); RED BLOOD COUNT 2.53 10^6/ul (4.70-6.10); RED CELL DISTRIBUTION WIDTH 13.6 % (11.5-14.5)
[2018-10-18 18:45] LABS: WHITE BLOOD COUNT 7.7 10^3/ul (4.8-10.8)
[2018-10-18 21:29] LABS: IMMEDIATE SPIN CROSSMATCH 1 5
[2018-10-18] MEDS: DOXAZOSIN 1 MG TAB PO (22:31)
[2018-10-18] MEDS: CEFEPIME 2GM/50 ML (PMX) 50 ML IV (22:36)
[2018-10-18] MEDS: AZITHROMYCIN 500MG/NS (PMX) 250 ML IV (22:37)
[2018-10-19 04:00] LABS: ADD MAN DIFF? NO
[2018-10-19 04:18] LABS: WHITE BLOOD COUNT 6.7 10^3/ul (4.8-10.8)
[2018-10-19 04:18] LABS: BASOPHILS % 0.1 % (0.0-2.0); EOSINOPHILS % 0.3 % (0.0-7.0); HEMATOCRIT 21.3 % (42.0-52.0); LYMPHOCYTES # 0.6 10^3/ul (0.8-2.9); LYMPHOCYTES % 9.1 % (15.0-51.0); MEAN CORPUSCULAR HEMOGLOBIN 29.3 pg (29.0-33.0); MEAN CORPUSCULAR HGB CONC 32.9 g/dl (32.0-37.0); MEAN CORPUSCULAR VOLUME 89.1 fl (82.0-101.0); MEAN PLATELET VOLUME 10.7 fl (7.4-10.4); MONOCYTE # 0.6 10^3/ul (0.3-0.9); MONOCYTES % 9.4 % (0.0-11.0); NEUTROPHIL # 5.4 10^3/ul (1.6-7.5); NEUTROPHILS % 80.7 % (39.0-77.0); PLATELET COUNT 185 10^3/UL (140-415); RED BLOOD COUNT 2.39 10^6/ul (4.70-6.10); RED CELL DISTRIBUTION WIDTH 13.4 % (11.5-14.5)
[2018-10-19 04:27] LABS: ANION GAP 12 (5-13); BLOOD UREA NITROGEN 72 mg/dl (7-20); CALCIUM 7.8 mg/dl (8.4-10.2); CARBON DIOXIDE 26 mmol/L (21-31); CHLORIDE 98 mmol/L (97-110); GLUCOSE 112 mg/dl (70-220); POTASSIUM 4.6 mmol/L (3.5-5.1); SODIUM 136 mmol/L (135-144)
[2018-10-19 04:28] LABS: MAGNESIUM 2.3 mg/dl (1.7-2.5)
[2018-10-19 04:28] LABS: PHOSPHORUS 8.1 mg/dl (2.5-4.9)
[2018-10-19 05:02] LABS: Estimated GFR 5 mL/min (>60)
[2018-10-19] MEDS: PANTOPRAZOLE 40 MG INJ IV ×2 (06:03→17:13)
[2018-10-19] MEDS: ACETAMINOPHEN 325 MG TAB PO (07:50)
[2018-10-19] MEDS: ATENOLOL 50 MG TAB PO (08:18)
[2018-10-19] MEDS: FAMOTIDINE 20 MG TAB PO (08:18)
[2018-10-19] MEDS: THIAMINE 100 MG TAB PO (08:18)
[2018-10-19] MEDS: SUCRALFATE (100 MG/ML) 10ML CUP PO ×4 (08:19→23:10)
[2018-10-19] MEDS: LOSARTAN 50 MG TAB PO (08:19)
[2018-10-19] MEDS: AZITHROMYCIN 500MG/NS (PMX) 250 ML IV (09:55)
[2018-10-19] MEDS: SOD CHLORIDE 0.9% 250 ML IV* (13:43)
[2018-10-19] MEDS: LABETALOL HCL 20MG INJ (15:01)
[2018-10-19] MEDS: PROPOFOL 40 ML (15:01)
[2018-10-19] MEDS: hydrALAzine 20 MG INJ (15:02)
[2018-10-19] MEDS: PIPER-TAZO 2.25 GM (PMX) 50 ML IVPB ×2 (16:11→23:10)
[2018-10-19] MEDS: BISACODYL (EC) 5 MG TAB PO ×2 (16:13→23:11)
[2018-10-19] MEDS: POLYETHYLENE GLYCOL 3350 119 GM POWDER PO ×2 (19:01→22:00)
[2018-10-19] MEDS: DOXAZOSIN 1 MG TAB PO (23:09)
[2018-10-20] MEDS: LABETALOL HCL 20MG INJ IV (00:36)
[2018-10-20] MEDS: PIPER-TAZO 2.25 GM (PMX) 50 ML IVPB ×3 (06:23→23:46)
[2018-10-20] MEDS: PANTOPRAZOLE 40 MG INJ IV ×2 (06:24→17:34)
[2018-10-20] MEDS: ATENOLOL 50 MG TAB PO (07:25)
[2018-10-20 08:28] LABS: ADD MAN DIFF? NO
[2018-10-20 08:45] LABS: BASOPHILS % 0.4 % (0.0-2.0); EOSINOPHILS # 0.1 10^3/ul (0.0-0.5); EOSINOPHILS % 1.5 % (0.0-7.0); HEMOGLOBIN 8.8 g/dl (14.0-18.0); LYMPHOCYTES # 0.7 10^3/ul (0.8-2.9); LYMPHOCYTES % 7.9 % (15.0-51.0); MEAN CORPUSCULAR HEMOGLOBIN 28.9 pg (29.0-33.0); MEAN CORPUSCULAR HGB CONC 32.6 g/dl (32.0-37.0); MEAN CORPUSCULAR VOLUME 88.5 fl (82.0-101.0); MEAN PLATELET VOLUME 10.3 fl (7.4-10.4); MONOCYTE # 0.7 10^3/ul (0.3-0.9); MONOCYTES % 8.4 % (0.0-11.0); NEUTROPHIL # 6.6 10^3/ul (1.6-7.5); NEUTROPHILS % 80.9 % (39.0-77.0); PLATELET COUNT 206 10^3/UL (140-415); RED BLOOD COUNT 3.05 10^6/ul (4.70-6.10)
[2018-10-20 08:45] LABS: WHITE BLOOD COUNT 8.2 10^3/ul (4.8-10.8)
[2018-10-20] MEDS: FAMOTIDINE 20 MG TAB PO (09:00)
[2018-10-20] MEDS: THIAMINE 100 MG TAB PO (09:00)
[2018-10-20] MEDS: SUCRALFATE (100 MG/ML) 10ML CUP PO ×4 (09:00→23:46)
[2018-10-20] MEDS: LOSARTAN 50 MG TAB PO (09:00)
[2018-10-20 09:09] LABS: ANION GAP 14 (5-13); BLOOD UREA NITROGEN 78 mg/dl (7-20); CALCIUM 8.6 mg/dl (8.4-10.2); CARBON DIOXIDE 22 mmol/L (21-31); CHLORIDE 100 mmol/L (97-110); GLUCOSE 83 mg/dl (70-220); POTASSIUM 4.6 mmol/L (3.5-5.1); SODIUM 136 mmol/L (135-144)
[2018-10-20 09:17] LABS: CREATININE 16.26 mg/dl (0.61-1.24); Estimated GFR 4 mL/min (>60)
[2018-10-20 10:42] LABS: NIL 0.01 IU/mL; QUANTIFERON(R)-TB GOLD INDETERMINATE (NEGATIVE)
[2018-10-20] MEDS: NIFEdipine (XL) 30 MG TAB PO (15:30)
[2018-10-20] MEDS: PROPOFOL 20 ML (18:52)
[2018-10-20] MEDS: FENTAnyl 50 MCG/ML VIAL (18:53)
[2018-10-20] MEDS: hydrALAzine 20 MG INJ (18:54)
[2018-10-20] MEDS: DOXAZOSIN 1 MG TAB PO (23:46)
[2018-10-21] MEDS: PIPER-TAZO 2.25 GM (PMX) 50 ML IVPB ×3 (06:48→22:15)
[2018-10-21] MEDS: PANTOPRAZOLE 40 MG INJ IV ×2 (06:48→17:20)
[2018-10-21] MEDS: ATENOLOL 50 MG TAB PO (07:25)
[2018-10-21] MEDS: LOSARTAN 50 MG TAB PO (07:49)
[2018-10-21] MEDS: NIFEdipine (XL) 30 MG TAB PO (07:49)
[2018-10-21] MEDS: THIAMINE 100 MG TAB PO (08:10)
[2018-10-21] MEDS: FAMOTIDINE 20 MG TAB PO (08:10)
[2018-10-21] MEDS: SUCRALFATE (100 MG/ML) 10ML CUP PO ×4 (08:10→20:22)
[2018-10-21] MEDS: DOXAZOSIN 1 MG TAB PO (20:23)
[2018-10-22] MEDS: PIPER-TAZO 2.25 GM (PMX) 50 ML IVPB ×2 (06:14→15:04)
[2018-10-22] MEDS: PANTOPRAZOLE 40 MG INJ IV (06:15)
[2018-10-22 06:37] LABS: ADD MAN DIFF? NO
[2018-10-22 06:46] LABS: BASOPHIL # 0.1 10^3/ul (0.0-0.1); BASOPHILS % 0.5 % (0.0-2.0); EOSINOPHILS # 0.4 10^3/ul (0.0-0.5); EOSINOPHILS % 3.6 % (0.0-7.0); HEMATOCRIT 29.6 % (42.0-52.0); HEMOGLOBIN 9.3 g/dl (14.0-18.0); LYMPHOCYTES # 0.9 10^3/ul (0.8-2.9); LYMPHOCYTES % 9.4 % (15.0-51.0); MEAN CORPUSCULAR HGB CONC 31.4 g/dl (32.0-37.0); MEAN CORPUSCULAR VOLUME 92.2 fl (82.0-101.0); MEAN PLATELET VOLUME 9.6 fl (7.4-10.4); MONOCYTE # 0.9 10^3/ul (0.3-0.9); MONOCYTES % 9.2 % (0.0-11.0); NEUTROPHIL # 7.4 10^3/ul (1.6-7.5); NEUTROPHILS % 76.7 % (39.0-77.0); PLATELET COUNT 272 10^3/UL (140-415); RED BLOOD COUNT 3.21 10^6/ul (4.70-6.10); RED CELL DISTRIBUTION WIDTH 13.6 % (11.5-14.5)
[2018-10-22 06:46] LABS: WHITE BLOOD COUNT 9.7 10^3/ul (4.8-10.8)
[2018-10-22 07:02] LABS: ANION GAP 10 (5-13); BLOOD UREA NITROGEN 44 mg/dl (7-20); CALCIUM 8.7 mg/dl (8.4-10.2); CARBON DIOXIDE 28 mmol/L (21-31); CHLORIDE 99 mmol/L (97-110); CREATININE 12.22 mg/dl (0.61-1.24); Estimated GFR 6 mL/min (>60); GLUCOSE 108 mg/dl (70-220); POTASSIUM 3.9 mmol/L (3.5-5.1); SODIUM 137 mmol/L (135-144)
[2018-10-22] MEDS: ATENOLOL 50 MG TAB PO (07:37)
[2018-10-22] MEDS: THIAMINE 100 MG TAB PO (08:03)
[2018-10-22] MEDS: FAMOTIDINE 20 MG TAB PO (08:04)
[2018-10-22] MEDS: SUCRALFATE (100 MG/ML) 10ML CUP PO ×2 (08:04→12:47)
[2018-10-22] MEDS: LOSARTAN 50 MG TAB PO ×2 (08:05→11:49)
[2018-10-22] MEDS: NIFEdipine (XL) 30 MG TAB PO ×3 (08:05→15:11)
[2018-10-23] MEDS ORDERED: NIFEdipine (XL) 90 MG TAB PO (09:00)
== END 2018-10-22 17:15 | disposition home or self-care (01) | DRG 377 ==
LOC: E/R 06:59 → TEL 10-18 11:19
PROVIDERS: Internal Medicine
PROC: 0DB68ZX Excision of Stomach, Via Natural or Artificial Opening Endoscopic, Diagnostic (ICD-10-PCS; principal; 2018-10-19 13:52)
PROC: 0DB78ZX Excision of Stomach, Pylorus, Via Natural or Artificial Opening Endoscopic, Diagnostic (ICD-10-PCS; 2018-10-19 13:52)
PROC: 0D5P8ZZ Destruction of Rectum, Via Natural or Artificial Opening Endoscopic (ICD-10-PCS; 2018-10-19 13:52)
PROC: 30233N1 Transfusion of Nonautologous Red Blood Cells into Peripheral Vein, Percutaneous Approach (ICD-10-PCS; 2018-10-19 13:52)
PROC: 5A1D70Z Performance of Urinary Filtration, Intermittent, Less than 6 Hours Per Day (ICD-10-PCS; 2018-10-19 13:52)
DX: K92.2 Gastrointestinal hemorrhage, unspecified (principal); J69.0 Pneumonitis due to inhalation of food and vomit; N18.6 End stage renal disease; D62 Acute posthemorrhagic anemia; I12.0 Hypertensive chronic kidney disease with stage 5 chronic kidney disease or end stage renal disease; R64 Cachexia; E87.0 Hyperosmolality and hypernatremia; D63.1 Anemia in chronic kidney disease; E87.5 Hyperkalemia; F17.200 Nicotine dependence, unspecified, uncomplicated; K92.1 Melena; K64.8 Other hemorrhoids; K62.1 Rectal polyp; I34.0 Nonrheumatic mitral (valve) insufficiency; R55 Syncope and collapse; Z99.2 Dependence on renal dialysis; Z68.20 Body mass index [BMI] 20.0-20.9, adult; Z91.15 Patient's noncompliance with renal dialysis; Z91.14 Patient's other noncompliance with medication regimen; Z79.82 Long term (current) use of aspirin
CPT/HCPCS: 36415; 36430; 70450; 71045; 80048; 80053; 80307; 82962; 83605; 83735; 84100; 84484; 85025; 85610; 85730; 86480; 86850; 86900; 86901; 86920; 87040-91; 87340; 88305; 88312; 90670; 90935; 93005; 96374; 96375; 99285-25